=== PATIENT | female | born 2000 | race African-American/Black ===

== ENCOUNTER 2022-06-03 21:51 | Emergency (ER) | payer BC, SELFPAY ==
[2022-06-03 22:51] VITALS: BP 106/64; PULSE 98; RESP 16; TEMP 36.9; O2SAT 100; BMI 29.3
[2022-06-03] MEDS: 0.9 % SODIUM CHLORIDE 1000 ml 1,000 ML IV (23:17)
[2022-06-03] MEDS: ONDANSETRON 2 MG/ML inj 4 MG IVP (23:18)
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
[2022-06-04] MEDS: 0.9 % SODIUM CHLORIDE 1000 ml 1,000 ML IV (01:17)
[2022-06-04] MEDS: PROMETHAZINE 25 MG/ML INJ 12.5 MG IVP (01:38)
[2022-06-04] MEDS: FAMOTIDINE 20 MG TABLET PO (01:58)
[2022-06-04 04:00] VITALS: BP 108/52; PULSE 70; RESP 16; O2SAT 98
== END 2022-06-04 04:30 | disposition home or self-care (01) ==
PROVIDERS: Emergency Provider Family Medicine
DX: R11.10 Vomiting, unspecified (principal); E86.0 Dehydration
CPT/HCPCS: 96374; 96375; 99283; 99284; A9270; J2405; J2550; J7030

== ENCOUNTER 2022-06-04 21:40 | Emergency (ER) | payer BC, SELFPAY ==
[2022-06-04 21:43] VITALS: BP 139/100; PULSE 52; RESP 18; TEMP 36.8; O2SAT 100; BMI 29.3
[2022-06-04 22:00] VITALS: BP 90/79; RESP 16; O2SAT 98
[2022-06-04] MEDS: 0.9 % SODIUM CHLORIDE 1000 ml 1,000 ML IV ×2 (22:18→23:26)
[2022-06-04] MEDS: PROCHLORPERAZINE 5 MG/ML VIAL 10 MG IV (22:19)
--- NOTE | 2022-06-04 22:25 | ED_ITS ---
HPI - General Adult General Date Seen: 06/04/22 Chief complaint: Nausea/Vomiting Stated complaint: alcohol poisoning Time Seen by Provider: 06/04/22 21:45 Source: patient Mode of arrival: ambulatory Limitations: no limitations History of Present Illness HPI narrative: Patient is a 22-year-old female who is in for a 2nd time in 24 hours with complaints of nausea and vomiting. She was out drinking two nights ago and got more intoxicated than she ever has before while drinking but cardia. She came in last evening and was given IV fluids and Zofran. She initially could not get the Zofran prescription filled but when she finally did she has taken three doses and is still nauseated. She has not been able to keep down any food or drink today. She denies fevers, chills, diarrhea. No syncope or presyncope. She denies other drug use. Related Data Home Medications Medication Instructions Recorded Confirmed bupropion HCl 150 mg 24 hr tablet, mg PO 06/03/22 extended release escitalopram oxalate 10 mg tablet 10 mg PO DAILY 06/03/22 06/04/22 Previous Rx's Medication Instructions Recorded prochlorperazine maleate 10 mg 10 mg PO Q8H PRN #12 tabs 06/04/22 tablet (Compazine) Allergies Allergy/AdvReac Type Severity Reaction Status Date / Time peanut Allergy Severe Anaphylaxis Verified 06/04/22 21:46 Review of Systems Narrative: Review of systems is outlined above otherwise noted to be negative. PFSH PFS Social History Smoking Status: Never smoker Do you use any of these nicotine containing products: None Second hand tobacco smoke exposure: No How often do you have a drink containing alcohol: 2-3 times a week How many standard drinks containing alcohol do you have on a typical day: 3 or 4 How often do you have six or more drinks on one occasion: Less than monthly AUDIT-C Alcohol total score: 5 Non-prescribed substance use: marijuana (any form) Exam Narrative: Exam Narrative: Vitals noted. HEENT: Conjunctiva clear. Tympanic membranes are pearly white bilaterally. Posterior pharynx is clear without erythema or exudate. Neck is supple without adenopathy. Lungs: Clear to auscultation in all chap[place]. No wheezes, rales, rhonchi. Heart: Regular rate and rhythm without murmur. Abdomen: Soft and nontender. No guarding, rigidity, rebound. Bowel sounds are normal. No palpable masses. Extremities: No cyanosis or edema. Good distal pulses. Neurologic: Awake, alert, fully oriented. Neurologic exam is nonfocal. Const: Vital Signs, click to edit/add: Vital Signs - 24 hr 06/04/22 21:43 06/04/22 22:00 06/04/22 23:02 Temperature 98.2 F Pulse Rate [Pulse Oximeter] 52 L 51 L Respiratory Rate 18 16 16 Blood Pressure [Ri t Upper Arm] 139/100 H 90/79 152/98 H Pulse Oximetry 100 98 98 Oxygen Delivery Me thod Room Air Room Air Room Air Course Course Hospital Course: Patient was seen and examined. She does appear mildly dehydrated. Labs are ordered. IV is established and she is given 1 L of normal saline and Compazine 10 mg IV. Vital Signs Vital signs: Initial Vital Signs Temperature 98.2 F 06/04/22 21:43 Temperature Source Temporal Artery Scan 06/04/22 21:43 Pulse Rate 52 L 06/04/22 21:43 Respiratory Rate 18 06/04/22 21:43 Blood Pressure 139/100 H 06/04/22 21:43 Blood Pressure Mean 113 06/04/22 21:43 Blood Pressure Position Sitting 06/04/22 21:43 Pulse Oximetry 100 06/04/22 21:43 Oxygen Delivery Method Room Air 06/04/22 21:43 Vital Signs Temperature 98.2 F 06/04/22 21:43 Pulse Rate 52 L 06/04/22 21:43 Respiratory Rate 18 06/04/22 21:43 Blood Pressure 139/100 H 06/04/22 21:43 Pulse Oximetry 100 06/04/22 21:43 Oxygen Delivery Method Room Air 06/04/22 21:43 Temperature 98.2 F 06/04/22 21:43 Pulse Rate 51 L 06/04/22 23:02 Respiratory Rate 16 06/04/22 23:02 Blood Pressure 152/98 H 06/04/22 23:02 Pulse Oximetry 98 06/04/22 23:02 Oxygen Delivery Method Room Air 06/04/22 23:02 Medical Decision Making Lab Data Labs: Lab Results 06/04/22 Range/Units 22:35 WBC 12.65 H (4.50-11.00) K/uL RBC 4.55 (4.00-5.20) m/uL Hgb 13.7 (12.0-16.0) gm/dL Hct 40.2 (33.0-51.0) % MCV 88 (80-100) fL MCH 30 (26-34) pg MCHC 34 (32-36) gm/dL RDW Coeff of Zenaida 13.1 (11.5-15.5) % Plt Count 371 (140-440) K/uL Neut % (Auto) 78.9 H (42.0-72.0) % Lymph % (Auto) 14.6 L (20-44) % [place] % (Auto) 5.3 (0.0-11.0) % Eos % (Auto) 0.0 (0.0-7.0) % Baso % (Auto) 0.2 (0.0-3.0) % Neut # (Auto) 10.00 H (1.7-7.0) K/uL Lymph # (Auto) 1.80 (0.90-2.90) K/uL [place] # (Auto) 0.70 (0.00-0.90) K/UL Eos # (Auto) 0.00 (0.00-0.50) K/uL Baso # (Auto) 0.00 (0.00-0.30) K/uL Sodium 140 (135-149) mmol/L Potassium 3.5 L (3.6-5.1) mmol/L Chloride 108 (96-114) mmol/L Carbon Dioxide 20 (20-32) mmol/L BUN 12 (5-24) mg/dL Creatinine 0.9 (0.5-1.5) mg/dL Estimated Creat Clear 78.86 Estimated GFR 94 ml/min Glucose 96 (60-115) mg/dL Calcium 9.5 (8.4-10.6) mg/dL Total Bilirubin 1.3 (0.1-1.5) mg/dL Direct Bilirubin 0.3 (0.0-0.5) mg/dL AST 33 (12-35) U/L ALT 23 (4-35) U/L Alkaline Phosphatase 68 (40-150) U/L Total Protein 9.1 H (6.0-8.3) g/dL Albumin 5.0 (3.3-5.0) g/dL Lipase 49 (23-300) U/L Discharge Plan Discharge Clinical Impression: Vomiting, Dehydration Patient Disposition: Home, Self-Care Condition: Improved Instructions: Acute Nausea and Vomiting (ED) Additional Instructions: Rest, push fluids, Tylenol for discomfort. Advance diet slowly as tolerated. Prescriptions: New prochlorperazine maleate [Compazine] 10 mg tablet 10 mg PO Q8H PRNQty: 12 0RF No Action escitalopram oxalate 10 mg tablet 10 mg PO DAILY bupropion HCl 150 mg tablet extended release 24 hr PO Follow Up/Referrals: Provider,Not a Local [Primary Care Provider] - Stand Alone Forms: [employer] Info Instructions
[2022-06-04 22:52] LABS: Basophils Percent Auto 0.2 % (0.0-3.0); Hematocrit 40.2 % (33.0-51.0); Hemoglobin* 13.7 gm/dL (12.0-16.0); Lymphocytes Percent Auto 14.6 % (20-44); Mean Corpuscular HGB Conc 34 gm/dL (32-36); Mean Corpuscular Hemoglobin 30 pg (26-34); Mean Corpuscular Volume 88 fL (80-100); Monocytes Percent Auto 5.3 % (0.0-11.0); Neutrophils Percent Auto 78.9 % (42.0-72.0); Platelet Count* 371 K/uL (140-440); RDW Coefficient of Variation % 13.1 % (11.5-15.5); Red Blood Count 4.55 m/uL (4.00-5.20); White Blood Count* 12.65 K/uL (4.50-11.00)
[2022-06-04 22:54] LABS: Chloride* 108 mmol/L (96-114); Sodium* 140 mmol/L (135-149)
[2022-06-04 22:55] LABS: Potassium* 3.5 mmol/L (3.6-5.1); Slide Review Reflex No
[2022-06-04 22:57] LABS: Alkaline Phosphatase* 68 U/L (40-150); Aspartate Amino Transferase* 33 U/L (12-35); Bilirubin Direct* 0.3 mg/dL (0.0-0.5); Bilirubin Total* 1.3 mg/dL (0.1-1.5); Blood Urea Nitrogen* 12 mg/dL (5-24); Carbon Dioxide* 20 mmol/L (20-32); Creatinine* 0.9 mg/dL (0.5-1.5); Est. Creatinine Clearance* 78.86; Estimated Glomerular Filt Rate 94 ml/min; Glucose* 96 mg/dL (60-115); Total Protein* 9.1 g/dL (6.0-8.3)
[2022-06-04 22:58] LABS: Alanine Aminotransferase* 23 U/L (4-35); Calcium* 9.5 mg/dL (8.4-10.6); Lipase* 49 U/L (23-300)
[2022-06-04 23:02] VITALS: BP 152/98; PULSE 51; RESP 16; O2SAT 98
--- NOTE | 2022-06-04 23:57 | ED.NURSE ---
Patient tolerating PO fluids. No vomiting.
[2022-06-05 00:04] VITALS: BP 131/88; PULSE 52; RESP 16; O2SAT 98
== END 2022-06-05 00:05 | disposition home or self-care (01) ==
PROVIDERS: Emergency Provider Family Medicine
DX: R11.0 Nausea (principal); F32.A Depression, unspecified; R45.851 Suicidal ideations
CPT/HCPCS: 36415; 80048; 80076; 83690; 85025; 96374; 99282; 99283; 99284; J0780; J7030

== ENCOUNTER 2022-06-05 11:00 | Emergency (ER) | payer BC, SELFPAY ==
[2022-06-05] VITALS (14 sets, daily range): BP systolic 121–159; BP diastolic 95–103; PULSE 45–66; RESP 14; TEMP 37.1; O2SAT 92–100; BMI 29.3
--- NOTE | 2022-06-05 11:18 | ED_ITS ---
HPI - General Adult General Time Seen by Provider: 11:19 Date Seen: 06/05/22 Chief complaint: Nausea/Vomiting Stated complaint: Alcohol poisoning, still nauseous Time Seen by Provider: 06/05/22 11:18 Source: patient and RN notes reviewed Mode of arrival: ambulatory Limitations: no limitations History of Present Illness HPI narrative: Patient is a 22-year-old female coming in with concerns of ongoing nausea. She did have a negative urine test that was reported to me at [facility] today. Patient was seen on the and the for nausea vomiting after drinking but cart he before being seen on the . She has been given IV fluids twice. Her 1st visit she was given Zofran and promethazine, discharge prescription which was for Zofran. Her 2nd visit she got Compazine and discharge prescription for Compazine. She has been trying the Zofran. She states she eats or drinks anything it comes up. No abdominal pain, no fevers chills. 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 She states she cannot afford it. I questioned if she had talked to the toan and she states she had. She screened positive for depression suicidality on intake nursing questioning. She endorses feeling depressed and being suicidal. When I question her she has a plan, she states she does have a plan but it is not until June that she is going to enact this. She has done self cutting on her right arm. She has a therapist but states she does not feel like she needs to see the therapist. She feels like she does need to see anybody for her depression or her suicidal thoughts at this time, states she just wants to feel better . She reportedly has not taken her antidepressant meds since Wednesday. Related Data Home Medications Medication Instructions Recorded Confirmed bupropion HCl 150 mg 24 hr tablet, mg PO 06/03/22 extended release escitalopram oxalate 10 mg tablet 10 mg PO DAILY 06/03/22 06/04/22 Previous Rx's Medication Instructions Recorded prochlorperazine maleate 10 mg 10 mg PO Q8H PRN #12 tabs 06/04/22 tablet (Compazine) olanzapine 2.5 mg tablet (Zyprexa) 2.5 mg PO BID PRN #6 tabs 06/05/22 omeprazole 40 mg capsule,delayed 40 mg PO DAILY #14 caps 06/05/22 release Allergies Allergy/AdvReac Type Severity Reaction Status Date / Time peanut Allergy Severe Anaphylaxis Verified 06/04/22 21:46 Review of Systems Status of ROS: Reports: 10 or more systems reviewed and unremarkable except as noted in History and below [facility] Social History Smoking Status: Never smoker Do you use any of these nicotine containing products: None Second hand tobacco smoke exposure: No How often do you have a drink containing alcohol: 2-3 times a week How many standard drinks containing alcohol do you have on a typical day: 3 or 4 How often do you have six or more drinks on one occasion: Less than monthly AUDIT-C Alcohol total score: 5 Non-prescribed substance use: marijuana (any form) service: No Exam Const: Vital Signs, click to edit/add: Vital Signs - 24 hr 06/05/22 11:06 06/05/22 11:20 06/05/22 11:30 Temperature 98.7 F Pulse Rate 47 L 54 L Pulse Rate [Pulse Oximeter] 46 L Respiratory Rate 14 Blood Pressure Blood Pressure [Ri ght Upper Arm] 159/97 H Pulse Oximetry 92 96 100 Oxygen Delivery Me thod Room Air 06/05/22 11:33 06/05/22 12:02 06/05/22 12:03 Temperature Pulse Rate 45 L 47 L 48 L Pulse Rate [Pulse Oximeter] Respiratory Rate Blood Pressure 121/96 H 151/101 H Blood Pressure [Ri ght Upper Arm] Pulse Oximetry 100 100 100 Oxygen Delivery Me thod 06/05/22 12:15 Temperature Pulse Rate 46 L Pulse Rate [Pulse Oximeter] Respiratory Rate Blood Pressure Blood Pressure [Ri ght Upper Arm] Pulse Oximetry 95 Oxygen Delivery Me thod Documenting provider has reviewed patient's vital signs: yes Common normals: no apparent distress, average body habitus, oriented x3 and no limitations General appearance: cooperative, comfortable and well kempt Other: Seems tired and like she does not feel well but does make good eye contact at times. Observe her to sit up when the blood pressure cuff starts to go off to take a measurement. HENMT: Common normals: normocephalic, head/scalp atraumatic, hearing grossly normal bilaterally, external ears normal, external nose normal, nasal mucous membranes and turbinates normal and moist oral mucous membranes Head and scalp: normocephalic and atraumatic Nose: external nose normal and nasal mucous membranes and turbinates normal External ear: external ears normal Eye: Common normals: PERRL, EOMs intact bilaterally, conjunctivae normal and no scleral icterus Conjunctiva: conjunctiva(e) normal Pupil: PERRL Neck & C-Spine: Common normals: full ROM, no lymphadenopathy, supple, no me ningeal signs, no JVD and thyroid normal Thyroid: thyroid normal Resp: Common normals: normal respiratory effort, no retractions, no use of accessory muscles and clear to auscultation bilaterally Auscultation: clear to auscultation bilaterally Cardio: Common normals: no JVD, regular rate, regular rhythm, S1 normal heart sound, S2 normal heart sound, no gallops, no clicks, no murmurs and no rub Rate: regular rate Rhythm: regular rhythm Heart sounds: S1 normal and S2 normal GI: Common normals: Normal to inspection, nondistended, normoactive bowel sounds present, soft to palpation, non-tender, no hepatosplenomegaly, no masses and no bruits Palpation: soft and no hepatosplenomegaly Extremity: Other: Has cut lezama on her right forearm in various stages of healing. There are a few fracture ones with scabs. Nothing looks infected, nothing requires any acute intervention today. Neuro: Common normals: oriented x3 Meningeal signs: no meningeal signs Psych: Common normals: mental status grossly normal, cooperative, denies hallucinations and denies homicidal ideation Appearance: well kempt Course Course Hospital Course: Have reviewed with patient that I do need her to talk to [facility] prior to discharge. We are going to initiate IV fluids, 80 mg IV Protonix and 5 mg IV Compazine for her symptoms. I will repeat her labs to ensure that there are no changes. They have been stable looking at blood work that was done the last time she was in. This could be nausea from other etiologies, possible underlying gastritis from her alcohol use and subsequent nausea and vomiting. She obviously has depression with indoor suicidality. Reevaluation(s) Reevaluation #1: Patient was sleeping when I went in to see her. She awakens easily. She states she still feeling nauseated despite the Protonix, fluids and IV Compazine. She has also recently tried Phenergan, Zofran. At this point I will send her with medication for Zyprexa. Will give her a dose here prior to discharge orally. She understands that if she has further ongoing nausea without vomiting, that this is outpatient workup. Patient has to urinate, reviewed with her that this would suggest that she is adequately hydrated. I do not believe more fluids are necessary at this time. Time: 14:07 Consultations Consultation #1: Spoke with Samy from [facility]. Reviewed my concerns regarding the patient's history. He will consult. Did review with Samy that I consider this patient medically cleared at this time given normal labs. 1:25 p.m.: Samy did speak with the patient, felt she was safe for discharge to home. She has endorsed thoughts with pill ingestion but denies any active plan today to him. She has a psychiatrist and a therapist, did agree to intensive outpatient treatment which he was able to schedule for next week. She reviewed him that her triggers are stresses with school, failing classes, financially not being able to meet needs for tuition. She did tell him that she was still feeling nauseated and not feeling well. He also did review with her questions about needing help with chemical dependency with alcohol use. She did not feel that this was necessary, states she only drank on weekends but just unfortunately over drank this last 1. He will be writing up his safety plan and does not endorse any need for hospitalization for her at this time. Time: 12:44 Vital Signs Vital signs: Initial Vital Signs Temperature 98.7 F 06/05/22 11:06 Temperature Source Temporal Artery Scan 06/05/22 11:06 Pulse Rate 46 L 06/05/22 11:06 Pulse Rhythm Regular 06/05/22 11:06 Respiratory Rate 14 06/05/22 11:06 Blood Pressure 159/97 H 06/05/22 11:06 Blood Pressure Mean 117 06/05/22 11:06 Blood Pressure Position Supine 06/05/22 11:06 Pulse Oximetry 92 06/05/22 11:06 Oxygen Delivery Method Room Air 06/05/22 11:06 Vital Signs Temperature 98.7 F 06/05/22 11:06 Pulse Rate 46 L 06/05/22 11:06 Respiratory Rate 14 06/05/22 11:06 Blood Pressure 159/97 H 06/05/22 11:06 Pulse Oximetry 92 06/05/22 11:06 Oxygen Delivery Method Room Air 06/05/22 11:06 Temperature 98.7 F 06/05/22 11:06 Pulse Rate 46 L 06/05/22 12:15 Respiratory Rate 14 06/05/22 11:06 Blood Pressure 151/101 H 06/05/22 12:03 Pulse Oximetry 95 06/05/22 12:15 Oxygen Delivery Method Room Air 06/05/22 11:06 Medical Decision Making Lab Data Lab results reviewed: Yes I reviewed the patient's lab results Labs: Lab Results 06/05/22 Range/Units 11:38 WBC 9.90 (4.50-11.00) K/uL RBC 4.34 (4.00-5.20) m/uL Hgb 13.0 (12.0-16.0) gm/dL Hct 38.7 (33.0-51.0) % MCV 89 (80-100) fL MCH 30 (26-34) pg MCHC 34 (32-36) gm/dL RDW Coeff of Zenaida 13.0 (11.5-15.5) % Plt Count 322 (140-440) K/uL Neut % (Auto) 72.9 H (42.0-72.0) % Lymph % (Auto) 21.2 (20-44) % [place] % (Auto) 5.1 (0.0-11.0) % Eos % (Auto) 0.2 (0.0-7.0) % Baso % (Auto) 0.5 (0.0-3.0) % Neut # (Auto) 7.20 H (1.7-7.0) K/uL Lymph # (Auto) 2.10 (0.90-2.90) K/uL [place] # (Auto) 0.50 (0.00-0.90) K/UL Eos # (Auto) 0.02 (0.00-0.50) K/uL Baso # (Auto) 0.05 (0.00-0.30) K/uL Sodium 138 (135-149) mmol/L Potassium 3.7 (3.6-5.1) mmol/L Chloride 107 (96-114) mmol/L Carbon Dioxide 22 (20-32) mmol/L BUN 10 (5-24) mg/dL Creatinine 0.8 (0.5-1.5) mg/dL Estimated Creat Clear 88.72 Estimated GFR 108 ml/min Glucose 103 (60-115) mg/dL Lactate 1.0 (0.5-1.9) mmol/L Calcium 9.1 (8.4-10.6) mg/dL Total Bilirubin 1.4 (0.1-1.5) mg/dL AST 32 (12-35) U/L ALT 23 (4-35) U/L Alkaline Phosphatase 63 (40-150) U/L C-Reactive Protein < 0.5 L (0.5-1.0) mg/dL Total Protein 8.4 H (6.0-8.3) g/dL Albumin 4.7 (3.3-5.0) g/dL Lipase 86 (23-300) U/L Ethyl Alcohol < 0.01 L (0.01-0.03) % Critical Care Time Critical Care Time Critical Care Time: No Discharge Plan Discharge Clinical Impression: Depression with suicidal ideation, Nausea Patient Disposition: Home, Self-Care Condition: Stable Instructions: Acute Nausea and Vomiting (ED), Suicide Prevention (ED) Additional Instructions: Take daily omeprazole for the next 2 weeks. Can still use Zofran 1st line to see if that helps with nausea. If that is not helping, can try the Zyprexa I have prescribed. If you have ongoing nausea, consideration for outpatient right upper quadrant ultrasound, possible EGD male need to be entertained. At this time, would recommend a period of ongoing observation. If you develop fever, abdominal pain with vomiting, return of vomiting that is not controlled by the anti emetics, do need to be re-evaluated. Prescriptions: New olanzapine [Zyprexa] 2.5 mg tablet 2.5 mg PO BID PRNQty: 6 0RF omeprazole 40 mg capsule,delayed release(DR/EC) 40 mg PO DAILY Qty: 14 0RF No Action escitalopram oxalate 10 mg tablet 10 mg PO DAILY bupropion HCl 150 mg tablet extended release 24 hr PO prochlorperazine maleate [Compazine] 10 mg tablet 10 mg PO Q8H PRNQty: 12 0RF Follow Up/Referrals: Provider,Not a Local [Primary Care Provider] - Stand Alone Forms: [employer] Info Instructions
[2022-06-05 11:46] LABS: Basophils Absolute Auto 0.05 K/uL (0.00-0.30); Basophils Percent Auto 0.5 % (0.0-3.0); Eosinophils Absolute Auto 0.02 K/uL (0.00-0.50); Eosinophils Percent Auto 0.2 % (0.0-7.0); Hematocrit 38.7 % (33.0-51.0); Immature Granulocytes Abs Auto 0.01 K/uL (0.00-0.30); Immature Granulocytes Pct Auto 0.1 %; Lymphocytes Percent Auto 21.2 % (20-44); Mean Corpuscular HGB Conc 34 gm/dL (32-36); Mean Corpuscular Hemoglobin 30 pg (26-34); Mean Corpuscular Volume 89 fL (80-100); Monocytes Percent Auto 5.1 % (0.0-11.0); Neutrophils Percent Auto 72.9 % (42.0-72.0); Platelet Count* 322 K/uL (140-440); Red Blood Count 4.34 m/uL (4.00-5.20)
[2022-06-05 11:49] LABS: Slide Review Reflex No
[2022-06-05] MEDS: 0.9 % SODIUM CHLORIDE 1000 ml 1,000 ML IV (11:59)
[2022-06-05] MEDS: PROCHLORPERAZINE 5 MG/ML VIAL IV (11:59)
[2022-06-05 12:03] LABS: Albumin* 4.7 g/dL (3.3-5.0); Chloride* 107 mmol/L (96-114); Potassium* 3.7 mmol/L (3.6-5.1); Sodium* 138 mmol/L (135-149)
[2022-06-05] MEDS: PANTOPRAZOLE SODIUM 40 MG INJ 80 MG IVP (12:03)
[2022-06-05 12:05] LABS: Creatinine* 0.8 mg/dL (0.5-1.5); Est. Creatinine Clearance* 88.72; Estimated Glomerular Filt Rate 108 ml/min; Lipase* 86 U/L (23-300)
[2022-06-05 12:06] LABS: Alanine Aminotransferase* 23 U/L (4-35); Alkaline Phosphatase* 63 U/L (40-150); Aspartate Amino Transferase* 32 U/L (12-35); Bilirubin Total* 1.4 mg/dL (0.1-1.5); Blood Urea Nitrogen* 10 mg/dL (5-24); Carbon Dioxide* 22 mmol/L (20-32); Ethanol* < 0.01 % (0.01-0.03); Glucose* 103 mg/dL (60-115); Total Protein* 8.4 g/dL (6.0-8.3)
[2022-06-05 12:07] LABS: Calcium* 9.1 mg/dL (8.4-10.6)
[2022-06-05 12:12] LABS: C Reactive Protein* < 0.5 mg/dL (0.5-1.0)
== END 2022-06-05 14:31 | disposition home or self-care (01) ==
PROVIDERS: Emergency Provider Family Medicine
DX: R45.851 Suicidal ideations (principal); F32.A Depression, unspecified; R11.0 Nausea
CPT/HCPCS: 36415; 80053; 82077; 83605; 83690; 85025; 86140; 96361; 96374; 96375; 99284; C9113; J0780; J7030

== ENCOUNTER 2022-06-22 02:20 | Emergency (ER) | payer BC, SELFPAY ==
[2022-06-22 02:24] VITALS: BP 124/84; PULSE 78; RESP 18; TEMP 36.6; O2SAT 99; BMI 30.5
--- NOTE | 2022-06-22 02:52 | PC.NURSE ---
room 3 made safe room, patient changed into paper scrubs, personal items inventoried with security. patient cooperative and resting in bed at this time, video monitor for chaya
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
[2022-06-22 03:33] LABS: Basophils Absolute Auto 0.05 K/uL (0.00-0.30); Basophils Percent Auto 0.7 % (0.0-3.0); Eosinophils Absolute Auto 0.17 K/uL (0.00-0.50); Eosinophils Percent Auto 2.5 % (0.0-7.0); Hemoglobin* 10.5 gm/dL (12.0-16.0); Immature Granulocytes Abs Auto 0.07 K/uL (0.00-0.30); Lymphocytes Absolute Auto 2.68 K/uL (0.90-2.90); Mean Corpuscular HGB Conc 33 gm/dL (32-36); Mean Corpuscular Hemoglobin 30 pg (26-34); Mean Corpuscular Volume 92 fL (80-100); Monocytes Percent Auto 5.5 % (0.0-11.0); Neutrophils Absolute Auto 3.52 K/uL (1.7-7.0); Neutrophils Percent Auto 51.3 % (42.0-72.0); Platelet Count* 485 K/uL (140-440); RDW Coefficient of Variation % 12.5 % (11.5-15.5); Red Blood Count 3.48 m/uL (4.00-5.20); White Blood Count* 6.87 K/uL (4.50-11.00)
[2022-06-22 03:38] LABS: Slide Review Reflex No
[2022-06-22 03:45] LABS: Chloride* 107 mmol/L (96-114); Sodium* 139 mmol/L (135-149)
[2022-06-22 03:48] LABS: Creatinine* 0.7 mg/dL (0.5-1.5); Est. Creatinine Clearance* 101.39; Estimated Glomerular Filt Rate 127 ml/min
[2022-06-22 03:49] LABS: Blood Urea Nitrogen* 13 mg/dL (5-24); Calcium* 8.7 mg/dL (8.4-10.6); Carbon Dioxide* 26 mmol/L (20-32); Glucose* 104 mg/dL (60-115)
[2022-06-22 03:50] LABS: Acetaminophen* < 10.0 ug/mL (10.0-30.0); Ethanol* < 0.01 % (0.01-0.03); Salicylate* < 1.0 mg/dL (1.0-10)
[2022-06-22 04:09] VITALS: RESP 18
[2022-06-22 04:13] LABS: Amphetamine Screen Urine Negative (Negative); Barbiturate Screen Urine Negative (Negative); Benzodiazepines Screen Urine Negative (Negative); Cocaine Screen Urine Negative (Negative); Methadone Screen Urine Negative (Negative); Methamphetamines Screen Urine Negative (Negative); Opiate Screen Urine Negative (Negative); Oxycodone Screen Urine Negative (Negative); Phencyclidine Screen Urine Negative (Negative); Tricyclic Antidepressant Urine Negative (Negative)
[2022-06-22 04:14] LABS: Cannabinoid Screen Urine POSITIVE (Negative)
[2022-06-22 04:33] LABS: SARS PCR* Negative SARS-CoV-2 (Negative)
--- NOTE | 2022-06-22 05:41 | PC.NURSE ---
patient sleeping in room, RR [address], security video monitor. cooperative with cares.
--- NOTE | 2022-06-22 07:28 | PC.NURSE ---
report to [facility]
[2022-06-22 09:10] VITALS: BP 100/67; PULSE 65; O2SAT 97
--- NOTE | 2022-06-22 12:45 | PC.SOCIAL ---
Social work: The closest mental health facility with a bed available to assess pt is [facility] in [place], [place] [phone]. Faxed requested information to them at [phone]. Awaiting call back with decision on admit.
[2022-06-22 15:08] VITALS: BP 97/69; PULSE 65; RESP 16; TEMP 36.4; O2SAT 100
--- NOTE | 2022-06-22 15:30 | ED.NURSE ---
Report called to [facility] Nancie CASTILLO.
== END 2022-06-22 15:35 | disposition other institution (70) ==
PROVIDERS: Family Medicine; Emergency Provider Emergency Medicine
DX: F32.A Depression, unspecified (principal); R45.851 Suicidal ideations
CPT/HCPCS: 36415; 80048; 80143; 80179; 80306; 82077; 85025; 87635; 99284

== ENCOUNTER 2022-06-22 15:36 | Outpatient (CLI) | payer BC, SELFPAY | END 2022-06-22 15:37 | disposition home or self-care (01) | LOC: AMB 06-24 06:45 | PROVIDERS: Visit Provider Emergency Medicine | DX: R45.851 Suicidal ideations (principal) | CPT/HCPCS: A0425; A0428 ==

== ENCOUNTER 2022-07-06 13:44 | Outpatient (CLI) | payer BC, SELFPAY | END 2022-07-06 13:45 | disposition home or self-care (01) | LOC: AMB 07-07 15:25 | PROVIDERS: Visit Provider Family Medicine | DX: R45.851 Suicidal ideations (principal) | CPT/HCPCS: A0425; A0429 ==